=== PATIENT | male | born 1960 | race Caucasian/White ===

== ENCOUNTER 2019-09-23 11:31 | Inpatient (IN) | payer OTHER ==
[~2019-09-23] VITALS: Ht 177.8 cm; Wt 88.3 kg
[2019-09-23] MEDS ORDERED: BENA20TA11 PO (11:49)
[2019-09-23] MEDS ORDERED: MELO-107 PO (11:49)
[2019-09-23] MEDS ORDERED: [UNRECOGNIZED DRUG - CODE] PO (11:49)
[2019-09-23] MEDS ORDERED: OXYC10TA59 PO (11:49)
[2019-09-23] MEDS ORDERED: 0.9% SODIUM CHLORIDE 10 ML SYRINGE IVP PRN ×2 (13:15→14:45)
[2019-09-23] MEDS ORDERED: SODIUM CHLORIDE 0.9% 2,000 ML IV ONE (13:15)
[2019-09-23 13:20] LABS: BASOPHILS % (AUTO) 1.4 % (0.0-2.0); EOSINOPHILS % (AUTO) 0.9 % (1.0-6.0); HEMATOCRIT 36.9 % (41-53); LYMPHOCYTES # (AUTO) 1.4 K/uL (1.0-4.8); LYMPHOCYTES % (AUTO) 13.2 % (22.0-44.0); MEAN CORPUSCULAR HEMOGLOBIN 25.3 pg (26.0-34.0); MEAN CORPUSCULAR HGB CONC 32.4 G/dL (31.0-37.0); MEAN CORPUSCULAR VOLUME 78 fL (80-100); MONOCYTES % (AUTO) 9.5 % (2.0-9.0); NEUTROPHILS # (AUTO) 8.1 K/uL (1.8-7.7); PLATELET COUNT (AUTO) 402 K/uL (150-450); RED BLOOD CELL COUNT(AUTO) 4.73 MIL/uL (4.50-5.90); RED CELL DISTRIBUTION WIDTH 15.3 % (11.5-14.5)
[2019-09-23 13:30] LABS: ANION GAP 5 mmol/L (8-16); CALCIUM, TOTAL 9.3 mg/dL (8.8-10.5); CARBON DIOXIDE 31 mmol/L (22-29); CHLORIDE 98 mmol/L (98-107); CREATININE 0.95 mg/dL (0.60-1.30); GLOMERULAR FILTR. RATE CALC > 60 mL/min (>60); GLUCOSE,RANDOM 109 mg/dL (70-110); POTASSIUM 4.7 mmol/L (3.5-5.1); SODIUM SERUM 134 mmol/L (136-145); UREA NITROGEN, BLOOD 11 mg/dL (7-18)
[2019-09-23] MEDS ORDERED: CloNIDine HCL 0.2 MG TABLET PO ONE (13:30)
[2019-09-23 13:36] LABS: ALANINE AMINOTRANSFERASE 36 U/L (12-78); ALBUMIN 3.4 g/dL (3.4-5.0); ALKALINE PHOSPHATASE 117 U/L (46-116); ASPARTATE AMINOTRANSFERASE 27 U/L (15-37); BILIRUBIN,TOTAL 0.4 mg/dL (0.1-1.0); TOTAL PROTEIN, SERUM 9.8 g/dL (6.4-8.2)
[2019-09-23] MEDS ORDERED: ONDANSETRON HCL 4 MG/2 ML VIAL IVP PRN (14:45)
[2019-09-23] MEDS ORDERED: ACETAMINOPHEN 325 MG TABLET PO PRN (14:45)
[2019-09-23] MEDS ORDERED: CLON0.1T83 PO (14:46)
[2019-09-23] MEDS ORDERED: PROM6.254 PO (14:47)
[2019-09-23] MEDS ORDERED: LOPE-202 PO (14:47)
[2019-09-23] MEDS ORDERED: TRAZ-252 PO (14:47)
[2019-09-23] MEDS ORDERED: MOM30 PO (14:47)
[2019-09-23] MEDS ORDERED: IBUP-2071 PO (14:47)
[2019-09-23] MEDS ORDERED: SODIUM CHLORIDE 0.9% 100 ML ONE (14:53)
[2019-09-23] MEDS ORDERED: IOVERSOL 320 MG/ML 100 ML VIAL ONE (14:53)
[2019-09-23] MEDS ORDERED: VANCOMYCIN HCL 1.5 GM in DEXTROSE 5%-WATER 250 ML IV ONE (15:00)
[2019-09-23 15:27] LABS: INR 1.1 (0.9-1.1); PROTHROMBIN TIME 10.9 SEC (9.4-11.6)
[2019-09-23 15:38] LABS: LACTIC ACID 0.6 mmol/L (0.4-2.0)
[2019-09-23 17:10] VITALS: BP 110/62
[2019-09-23] MEDS ORDERED: PNEUMOCOCCAL VACCINE POLYVALENT 0.5 ML VIAL [PPSV23] IM ONE (18:00)
[2019-09-23 20:00] VITALS: BP 129/69
[2019-09-24] MEDS ORDERED: ONDANSETRON HCL 4 MG/2 ML VIAL IVP PRN (04:30)
[2019-09-24] MEDS ORDERED: OxyCODONE HCL/ACETAMINOPHEN 5-325 MG TABLET PO PRN ×2 (04:30)
[2019-09-24] MEDS ORDERED: 0.9% SODIUM CHLORIDE 10 ML SYRINGE IVP PRN (04:30)
[2019-09-24] MEDS ORDERED: LOPERAMIDE HCL 2 MG/15 ML SUSPENSION UDCUP PO PRN (04:30)
[2019-09-24] MEDS ORDERED: HydrOXYzine PAMOATE 50 MG CAPSULE PO PRN (04:30)
[2019-09-24] MEDS ORDERED: CloNIDine HCL 0.1 MG TABLET PO PRN (04:30)
[2019-09-24] MEDS ORDERED: MAG HYDROX/AL HYDROX/SIMETH ES 30 ML SUSPENSION UDCUP PO PRN (04:30)
[2019-09-24 05:26] VITALS: BP 136/69
[2019-09-24] MEDS ORDERED: SODIUM CHLORIDE 0.9% 500 ML IV ONE (05:35)
[2019-09-24] MEDS: CeFAZolin 1 GM/DEXTROSE 50 ML IV SCH ×3 (05:37→20:42)
[2019-09-24] MEDS: CloNIDine HCL 0.1 MG TABLET PO SCH ×4 (06:32→22:09)
[2019-09-24 07:54] VITALS: BP 137/67
[2019-09-24] MEDS: BENAZEPRIL HCL 20 MG TABLET PO SCH (08:35)
[2019-09-24] MEDS: MELOXICAM 7.5 MG TABLET PO SCH ×2 (08:35→20:43)
[2019-09-24] MEDS: FAMOTIDINE 10 MG/ML 2 ML VIAL IVP SCH (08:35)
[2019-09-24] MEDS: DOCUSATE SODIUM 100 MG CAPSULE PO SCH ×2 (08:35→20:42)
[2019-09-24 12:32] VITALS: BP 137/72
[2019-09-24] MEDS: IBUPROFEN 600 MG TABLET PO PRN ×2 (12:41→22:11)
[2019-09-24 15:10] VITALS: BP 120/76
[2019-09-24 15:38] LABS: AMPHET/METH SCREEN,URINE POSITIVE (NEGATIVE); BARBITURATE SCREEN, URINE NEGATIVE (NEGATIVE); BENZODIAZEPINES SCREEN,URINE POSITIVE (NEGATIVE); CANNABINOID SCREEN,URINE NEGATIVE (NEGATIVE); COCAINE SCREEN,URINE NEGATIVE (NEGATIVE); METHADONE SCREEN, URINE NEGATIVE (NEGATIVE); OPIATE SCREEN,URINE POSITIVE (NEGATIVE)
[2019-09-24 15:39] LABS: PHENCYCLIDINE SCREEN,URINE NEGATIVE (NEGATIVE)
[2019-09-24 20:32] VITALS: BP 124/80
[2019-09-24] MEDS: TraZODone HCL 50 MG TABLET PO SCH (20:42)
[2019-09-25 04:30] VITALS: BP 132/80
[2019-09-25] MEDS ORDERED: SODIUM CHLORIDE 0.9% 500 ML IV ONE (05:01)
[2019-09-25] MEDS: CloNIDine HCL 0.1 MG TABLET PO SCH ×4 (05:02→22:20)
[2019-09-25] MEDS: CeFAZolin 1 GM/DEXTROSE 50 ML IV SCH ×3 (05:02→21:00)
[2019-09-25 07:15] LABS: EOSINOPHILS % (AUTO) 0.4 % (1.0-6.0); HEMATOCRIT 31.1 % (41-53); HEMOGLOBIN 10.4 g/dL (13.5-17.5); LYMPHOCYTES # (AUTO) 1.6 K/uL (1.0-4.8); LYMPHOCYTES % (AUTO) 14.8 % (22.0-44.0); MEAN CORPUSCULAR HEMOGLOBIN 25.5 pg (26.0-34.0); MEAN CORPUSCULAR HGB CONC 33.5 G/dL (31.0-37.0); MEAN CORPUSCULAR VOLUME 76 fL (80-100); MONOCYTES # (AUTO) 0.7 K/uL (0.1-1.0); MONOCYTES % (AUTO) 6.4 % (2.0-9.0); NEUTROPHILS # (AUTO) 8.1 K/uL (1.8-7.7); NEUTROPHILS % (AUTO) 77.4 % (40.0-70.0); PLATELET COUNT (AUTO) 473 K/uL (150-450); RED BLOOD CELL COUNT(AUTO) 4.08 MIL/uL (4.50-5.90); RED CELL DISTRIBUTION WIDTH 15.1 % (11.5-14.5)
[2019-09-25 07:24] LABS: ANION GAP 9 mmol/L (8-16); CALCIUM, TOTAL 8.9 mg/dL (8.8-10.5); CARBON DIOXIDE 27 mmol/L (22-29); CHLORIDE 100 mmol/L (98-107); CREATININE 0.95 mg/dL (0.60-1.30); GLOMERULAR FILTR. RATE CALC > 60 mL/min (>60); GLUCOSE,RANDOM 114 mg/dL (70-110); POTASSIUM 3.8 mmol/L (3.5-5.1); SODIUM SERUM 136 mmol/L (136-145); UREA NITROGEN, BLOOD 12 mg/dL (7-18)
[2019-09-25] MEDS: MELOXICAM 7.5 MG TABLET PO SCH (07:46)
[2019-09-25] MEDS: BENAZEPRIL HCL 20 MG TABLET PO SCH (07:46)
[2019-09-25] MEDS: DOCUSATE SODIUM 100 MG CAPSULE PO SCH ×2 (07:47→21:00)
[2019-09-25] MEDS: FAMOTIDINE 10 MG/ML 2 ML VIAL IVP SCH (07:47)
[2019-09-25 07:54] VITALS: BP 144/78
[2019-09-25 12:53] VITALS: BP 133/55
[2019-09-25] MEDS ORDERED: DOXY-354 PO (16:36)
[2019-09-25 16:58] VITALS: BP 138/79
[2019-09-25] MEDS: TraZODone HCL 50 MG TABLET PO SCH (19:53)
[2019-09-25 20:00] VITALS: BP 140/86
== END 2019-09-25 23:30 | DRG 603 ==
LOC: EMS 11:34 → 6S 14:55
PROVIDERS: ADMIT Hospitalist; ATTEND Hospitalist
DX: L03.113 Cellulitis of right upper limb (principal); E87.1 Hypo-osmolality and hyponatremia; F11.20 Opioid dependence, uncomplicated; F31.9 Bipolar disorder, unspecified; I10 Essential (primary) hypertension; Z87.891 Personal history of nicotine dependence; D64.9 Anemia, unspecified; G89.29 Other chronic pain; M54.9 Dorsalgia, unspecified; Z28.21 Immunization not carried out because of patient refusal
CPT/HCPCS: 36245; 36569; 73201; 76937; 80307; 83605; 84145; 87040; G0480; J0690; J3370; J3490; J7030; J7040; J7050; J7060